=== PATIENT | female | born 1950 | race Caucasian/White ===

== ENCOUNTER → 2018-09-13 | Outpatient (CLI) | payer MEDICARE, OTHER ==
[~2018-09-13] MED LIST: CARV6.252 PO; CEPH-368 PO; EPINEPHRINE 1 MG/ML, 1ML ONE; FAMO-79 PO; FENTANYL PF 250 MCG/5ML ONE; HYDR25TA6 PO; KETOROLAC 60 MG/2 ML ONE; LEVO137T2 PO; LEVO500T47 PO; LIOT5TAB3 PO; LISI1TAB3 PO; MIDAZOLAM 1 MG/ML, 2ML ONE; OXYC-306 PO; POTA10TA6 PO; PRED10TA PO; RANI150T23 PO; ROPIvacaine/PF 0.2%, 20 ML ONE; SODIUM CHLORIDE 0.9% 100 ML ONE; TRANEXAMIC ACID 100 MG/ML, 10ML ONE; VENL150C PO
[2018-09-13 16:07] LABS: BASOPHILS # (AUTO) 0.05 x10^3/uL (0-0.1); BASOPHILS % (AUTO) 1 % (0-1); EOSINOPHILS # (AUTO) 0.42 x10^3/uL (0-0.4); EOSINOPHILS % (AUTO) 5 % (1-7); LYMPHOCYTES # (AUTO) 1.64 x10^3/uL (1-3.4); LYMPHOCYTES % (AUTO) 21 % (22-44); MD NO; MEAN CORPUSCULAR HEMOGLOBIN 31.8 pg (27.0-34.8); MEAN CORPUSCULAR HGB CONC 33.7 g/dL (32.4-35.8); MEAN CORPUSCULAR VOLUME 94.4 fL (80-100); MEAN PLATELET VOLUME 8.2 fL (7.4-10.4); MONOCYTES # (AUTO) 0.62 x10^3/uL (0.2-0.8); MONOCYTES % (AUTO) 8 % (2-9); NEUTROPHILS % (AUTO) 66 % (42-75); PLATELET COUNT 295 x10^3/uL (130-400); RED BLOOD COUNT 4.39 x10^6/uL (3.82-5.3); RED CELL DISTRIBUTION WIDTH 13.2 % (9.6-15.2)
[2018-09-13 16:17] LABS: INTERNATIONAL NORMALIZED RATIO 0.97 (0.93-1.1); PROTHROMBIN TIME 10.3 Seconds (9.6-11.5)
[2018-09-13 16:18] LABS: ALBUMIN 3.7 g/dL (3.4-5.0); ANION GAP 7 mmol/L (5-15); CALCIUM 9.4 mg/dL (8.5-10.1); CHLORIDE 104 mmol/L (98-107)
[2018-09-13 16:21] LABS: ALANINE AMINOTRANSFERASE 30 U/L (12-78); ALKALINE PHOSPHATASE 88 U/L (45-117); BILIRUBIN,TOTAL 0.4 mg/dL (0.2-1.0); CREATININE 0.64 mg/dL (0.55-1.02); TOTAL PROTEIN 7.3 g/dL (6.4-8.2)
== END | disposition home or self-care (01) ==
LOC: STAR 14:55
PROVIDERS: ATTEND Orthopaedic Surgery
DX: Z01.818 Encounter for other preprocedural examination (principal); M17.11 Unilateral primary osteoarthritis, right knee
CPT/HCPCS: 36415; 80053; 83036; 85025; 85610; 85730; 87081; 87147; 87806; 93005; G0475

== ENCOUNTER 2018-09-17 07:28 | Inpatient (IN) | payer MEDICARE, OTHER ==
[~2018-09-17] VITALS: Ht 170.2 cm; Wt 100.8 kg
[~2018-09-17 07:28] MED LIST changes: -EPINEPHRINE 1 MG/ML, 1ML ONE; -FENTANYL PF 250 MCG/5ML ONE; -KETOROLAC 60 MG/2 ML ONE; -MIDAZOLAM 1 MG/ML, 2ML ONE; -ROPIvacaine/PF 0.2%, 20 ML ONE; -SODIUM CHLORIDE 0.9% 100 ML ONE; -TRANEXAMIC ACID 100 MG/ML, 10ML ONE
[2018-09-17] MEDS ORDERED: LACTATED RINGERS 1,000 ML IV SCH (07:55)
[2018-09-17] MEDS ORDERED: ACETAMINOPHEN 500 MG TABLET PO ONE (08:00)
[2018-09-17] MEDS ORDERED: GABAPENTIN 300 MG CAPSULE PO ONE (08:00)
[2018-09-17 08:07] VITALS: BP 138/93
[2018-09-17] MEDS ORDERED: PROPOFOL 10 MG/ML, 20ML ONE (10:22)
[2018-09-17] MEDS ORDERED: SUCCINYLCHOLINE 20 MG/ML, 10ML ONE (10:22)
[2018-09-17] MEDS ORDERED: CEFAZOLIN 1,000 MG ONE (10:22)
[2018-09-17] MEDS ORDERED: GLYCOPYRROLATE 0.2MG/1ML, 5ML ONE (10:22)
[2018-09-17] MEDS ORDERED: ROCURONIUM 10MG/ML,5ML ONE (10:22)
[2018-09-17] MEDS ORDERED: NEOSTIGMINE 1 MG/ML, 10ML ONE (10:22)
[2018-09-17] MEDS ORDERED: PROMETHAZINE 25 MG/ML, 1ML IV PRN (11:00)
[2018-09-17] MEDS ORDERED: MEPERIDINE/PF 25MG/0.5ML IVPush PRN (11:00)
[2018-09-17] MEDS ORDERED: OXYcodone 5 MG/5 ML ORAL.SOL UDC PO PRN (11:00)
[2018-09-17] MEDS ORDERED: ALBUTEROL SULFATE 2.5 MG/3 ML NPPB PRN (11:00)
[2018-09-17] MEDS ORDERED: KETOROLAC 30 MG/1 ML IV PRN (11:00)
[2018-09-17] MEDS ORDERED: ONDANSETRON 2MG/ML, 2ML IVPush PRN (11:00)
[2018-09-17] MEDS ORDERED: hydrALAzine 20 MG/ML, 1ML IV PRN (11:00)
[2018-09-17] MEDS ORDERED: FENTANYL PF 100 MCG/2ML IV PRN (11:00)
[2018-09-17] MEDS ORDERED: HYDROmorphone 1 MG/ML, 1ML IV PRN ×2 (11:00→12:30)
[2018-09-17] MEDS ORDERED: METOCLOPRAMIDE 5 MG/ML, 2ML IV PRN (11:00)
[2018-09-17] MEDS ORDERED: LABETALOL 5MG/ML, 20ML IV PRN (11:00)
[2018-09-17] MEDS ORDERED: DIPHENHYDRAMINE 25 MG CAPSULE PO PRN (12:30)
[2018-09-17] MEDS ORDERED: PROMETHAZINE 25 MG/ML, 1ML IM PRN (12:30)
[2018-09-17] MEDS ORDERED: BISACODYL 10 MG SUPP PR PRN (12:30)
[2018-09-17] MEDS ORDERED: LORazepam 1MG TABLET PO PRN (12:30)
[2018-09-17] MEDS ORDERED: ZOLPIDEM 5MG TABLET PO PRN (12:30)
[2018-09-17] MEDS ORDERED: ALUMINUM/MAG/SIMETHICONE 30 ML UDC PO PRN (12:30)
[2018-09-17] MEDS ORDERED: SENNA/DOCUSATE TABLET PO PRN (12:30)
[2018-09-17] MEDS ORDERED: LORazepam 2 MG/ML, 1ML IVPush PRN (12:30)
[2018-09-17] MEDS ORDERED: MAGNESIUM HYDROXIDE 8%, 30ML UDC PO PRN (12:30)
[2018-09-17] MEDS ORDERED: TRANEXAMIC ACID 1,000 MG in SODIUM CHLORIDE 0.9% 100 ML IVPB ONE (12:30)
[2018-09-17] MEDS ORDERED: PROMETHAZINE 12.5 MG SUPP PR PRN (12:30)
[2018-09-17] MEDS ORDERED: DIAZEPAM 5 MG TABLET PO PRN (12:30)
[2018-09-17] MEDS ORDERED: ONDANSETRON 2MG/ML, 2ML IV PRN (12:30)
[2018-09-17] MEDS ORDERED: ACETAMINOPHEN 650 MG/20.3 ML UDC PO PRN (12:30)
[2018-09-17] MEDS ORDERED: ONDANSETRON 4 MG TABLET PO PRN (12:30)
[2018-09-17] MEDS ORDERED: OXYcodone 5 MG/5 ML ORAL.SOL UDC ONE (12:36)
[2018-09-17] MEDS ORDERED: FENTANYL PF 100 MCG/2ML ONE (12:36)
[2018-09-17 13:25] VITALS: BP 126/81
[2018-09-17] MEDS ORDERED: RANITIDINE MC SCH (13:30)
[2018-09-17] MEDS ORDERED: HYDROmorphone 2 MG/ML, 1ML ONE (13:39)
[2018-09-17 17:25] VITALS: BP 124/78
[2018-09-17] MEDS: CEFAZOLIN PMX 2GM/50ML 50 ML IVPB SCH (17:41)
[2018-09-17] MEDS: D5%-0.45% NACL 1,000 ML IV SCH (19:30)
[2018-09-17 20:20] VITALS: BP 117/73
[2018-09-17] MEDS ORDERED: FAMOTIDINE 20 MG TABLET PO SCH (21:00)
[2018-09-17] MEDS: DOCUSATE 100 MG CAPSULE PO SCH (21:43)
[2018-09-17] MEDS: CARVEDILOL 6.25 MG TABLET PO SCH (21:44)
[2018-09-17 23:59] VITALS: BP 117/76
[2018-09-18] MEDS: CEFAZOLIN PMX 2GM/50ML 50 ML IVPB SCH (01:35)
[2018-09-18 04:17] VITALS: BP 114/64
[2018-09-18] MEDS: HYDROcodone/APAP 5/325 TABLET PO PRN ×2 (05:16→09:31)
[2018-09-18] MEDS: D5%-0.45% NACL 1,000 ML IV SCH (05:30)
[2018-09-18] MEDS ORDERED: DEXAMETHASONE 4 MG/ML, 1ML IVPush SCH (06:00)
[2018-09-18] MEDS ORDERED: LEVOTHYROXINE 137 MCG TABLET PO SCH (06:00)
[2018-09-18] MEDS ORDERED: ASPIRIN 81 MG TABLET EC PO SCH ×2 (06:00→18:00)
[2018-09-18 07:15] VITALS: BP 127/75
[2018-09-18] MEDS: DOCUSATE 100 MG CAPSULE PO SCH (08:57)
[2018-09-18] MEDS: CARVEDILOL 6.25 MG TABLET PO SCH (08:57)
[2018-09-18] MEDS ORDERED: POTASSIUM CHLORIDE 10 MEQ TABLET.ER PO SCH (09:00)
[2018-09-18] MEDS ORDERED: MULTIVITAMINS/MINERALS TABLET PO SCH (09:00)
[2018-09-18] MEDS ORDERED: HYDROCHLOROTHIAZIDE 25 MG TABLET PO SCH (09:00)
[2018-09-18] MEDS ORDERED: VENLAFAXINE 75 MG CAP ER PO SCH (09:00)
[2018-09-18] MEDS ORDERED: LIOTHYRONINE 5 MCG TABLET PO SCH (09:00)
[2018-09-18] MEDS ORDERED: KETOROLAC 30 MG/1 ML IV SCH (12:30)
[2018-09-18 13:12] VITALS: BP 125/68
== END 2018-09-18 13:28 | disposition home or self-care (01) | DRG 470 ==
LOC: OUT 07:28 → ORIP 13:10 → 4NOR 13:16 → UNDODISIN 09-18 13:10 → DCLOUNGE 09-18 13:23
PROVIDERS: ADMIT Orthopaedic Surgery; ATTEND Orthopaedic Surgery
PROC: 3E0T3BZ Introduction of Anesthetic Agent into Peripheral Nerves and Plexi, Percutaneous Approach (ICD-10-PCS; 2018-09-17)
PROC: 5A09357 Assistance with Respiratory Ventilation, Less than 24 Consecutive Hours, Continuous Positive Airway Pressure (ICD-10-PCS; 2018-09-17)
PROC: 0SRC069 Replacement of Right Knee Joint with Oxidized Zirconium on Polyethylene Synthetic Substitute, Cemented, Open Approach (ICD-10-PCS; principal; 2018-09-17 09:45)
PROC: 5A09357 Assistance with Respiratory Ventilation, Less than 24 Consecutive Hours, Continuous Positive Airway Pressure (ICD-10-PCS; 2018-09-18)
DX: M17.11 Unilateral primary osteoarthritis, right knee (principal); M46.1 Sacroiliitis, not elsewhere classified; R11.0 Nausea; I10 Essential (primary) hypertension; M21.00 Valgus deformity, not elsewhere classified, unspecified site
CPT/HCPCS: 36415; 85014; 85018; C1713; G0378; J0171; J0690; J1100; J1170; J1885; J2250; J2405; J2704; J2710; J2795; J3010; J3490; C1776; J0330; J7120

== ENCOUNTER 2018-10-12 19:03 | Day surgery (SDC) | payer MEDICARE, OTHER ==
[~2018-10-12] VITALS: Ht 170.2 cm; Wt 99.6 kg
--- NOTE | 2018-10-12 19:22 | NUR ---
THIS IS A 68 YO FEMALE WHO PRESENTS TO THE ER C/O DEHISCENCE OF RIGHT KNEE SURGICAL SITE. PT HAD SX ON 09/17/18. PT CURRENTLY DENIES PAIN, BUT STATES WITH WEIGHT BEARING PAIN IS A 7/10. PT REFUSES OFFER OF PAIN MEDICATION AT THIS TIME. WET DRESSING PLACED ON SITE. PT REPORTS LAST TIME SHE ATE WAS SOUP FOR LUNCH AROUND 1300. PT AO X 4. SKIN PWD. RESP EVEN ADN EQAUL. AT BEDSIDE. CALL LIGHT WITHIN REACH. WILL COTN TO MONITOR PT.
[2018-10-12 20:45] VITALS: BP 159/73
[2018-10-12] MEDS ORDERED: ASPI-515 PO (20:47)
[2018-10-12] MEDS ORDERED: PROPOFOL 10 MG/ML, 20ML ONE (20:51)
[2018-10-12] MEDS ORDERED: LIDOCAINE 2% 100MG/5ML SYRINGE ONE (20:51)
[2018-10-12] MEDS ORDERED: CEFAZOLIN 1,000 MG ONE (20:51)
[2018-10-12] MEDS ORDERED: MIDAZOLAM 1 MG/ML, 2ML ONE (20:55)
[2018-10-12] MEDS ORDERED: FENTANYL PF 100 MCG/2ML ONE (20:55)
[2018-10-12] MEDS ORDERED: MORPHINE SULFATE 4 MG/ML, 1ML IVPush PRN (21:00)
[2018-10-12] MEDS ORDERED: hydrALAzine 20 MG/ML, 1ML IV PRN ×2 (21:00→22:00)
[2018-10-12] MEDS ORDERED: FENTANYL PF 100 MCG/2ML IV PRN ×2 (21:00→22:00)
[2018-10-12] MEDS ORDERED: METOPROLOL 1 MG/ML, 5ML IV PRN (21:00)
[2018-10-12] MEDS ORDERED: OXYcodone 5 MG/5 ML ORAL.SOL UDC PO PRN ×2 (21:00→22:00)
[2018-10-12] MEDS ORDERED: LABETALOL 5MG/ML, 20ML IV PRN ×2 (21:00→22:00)
[2018-10-12] MEDS ORDERED: SODIUM CHLORIDE FLUSH 10ML SYR IVF PRN (21:00)
[2018-10-12] MEDS ORDERED: METOCLOPRAMIDE 5 MG/ML, 2ML IV PRN (21:00)
[2018-10-12] MEDS ORDERED: LORazepam 2 MG/ML, 1ML IVPush PRN (21:00)
[2018-10-12] MEDS ORDERED: OXYcodone 5 MG/5 ML ORAL.SOL UDC ONE (21:52)
[2018-10-12] MEDS ORDERED: morphine SULFATE 10 MG/ML, 1ML ONE (21:56)
[2018-10-12] MEDS ORDERED: HYDROmorphone 1 MG/ML, 1ML ONE (21:57)
[2018-10-12] MEDS ORDERED: HYDROcodone/APAP 7.5-325MG/15ML UDC ONE ×2 (21:59→22:18)
[2018-10-12] MEDS ORDERED: HYDROmorphone 2 MG/ML, 1ML IVPush PRN (22:00)
[2018-10-12] MEDS ORDERED: ONDANSETRON 2MG/ML, 2ML IV PRN (22:00)
[2018-10-12] MEDS ORDERED: MORPHINE SULFATE 4 MG/ML, 1ML ONE ×2 (22:01→22:18)
[2018-10-12] MEDS: HYDROcodone/APAP 7.5-325MG/15ML UDC PO PRN ×2 (22:02→22:19)
[2018-10-12] MEDS: MORPHINE SULFATE 4 MG/ML, 1ML IVPush PRN ×2 (22:03→22:10)
[2018-10-12] MEDS ORDERED: CEPH-368 PO (22:55)
== END 2018-10-12 22:56 | disposition home or self-care (01) ==
LOC: SDC 19:56 → ED 19:56 → EDIP 20:45 → UNDOADMIN 20:45 → SDC 20:45 → EDIP 22:45 → 4NOR 22:45 → SDC 22:56 → UNDODISIN 23:46
PROVIDERS: ATTEND Orthopaedic Surgery
DX: T81.30XA Disruption of wound, unspecified, initial encounter (principal); Z96.651 Presence of right artificial knee joint; Y83.8 Other surgical procedures as the cause of abnormal reaction of the patient, or of later complication, without mention of misadventure at the time of the procedure; Y92.89 Other specified places as the place of occurrence of the external cause; K21.9 Gastro-esophageal reflux disease without esophagitis; E03.9 Hypothyroidism, unspecified; I10 Essential (primary) hypertension; G47.33 Obstructive sleep apnea (adult) (pediatric); Z88.8 Allergy status to other drugs, medicaments and biological substances
CPT/HCPCS: 12020; 20610; 73564; 96374; 99285; J0690; J2250; J2704; J3010; G0378

== ENCOUNTER → 2020-05-06 | Outpatient (CLI) | payer MEDICARE, OTHER ==
[~2020-05-06] MED LIST changes: +ASPI-515 PO; +LIOT5TAB11 PO; -LIOT5TAB3 PO; +LISI1TAB23 PO; -LISI1TAB3 PO; +RANI-467 PO; -RANI150T23 PO
== END | disposition home or self-care (01) ==
LOC: RAD 09:43
PROVIDERS: ATTEND Nurse Practitioner Family
DX: R68.84 Jaw pain (principal)
CPT/HCPCS: 70100

== ENCOUNTER → 2020-05-06 | Outpatient (CLI) | payer MEDICARE, OTHER | END | disposition home or self-care (01) | LOC: CFH 08:44 | PROVIDERS: ATTEND Nurse Practitioner Family | DX: I63.81 Other cerebral infarction due to occlusion or stenosis of small artery (principal); J34.89 Other specified disorders of nose and nasal sinuses; R42 Dizziness and giddiness; R68.84 Jaw pain; W18.30XA Fall on same level, unspecified, initial encounter; X58.XXXA Exposure to other specified factors, initial encounter; Y92.89 Other specified places as the place of occurrence of the external cause; Y99.8 Other external cause status | CPT/HCPCS: 70450 ==

== ENCOUNTER → 2020-07-15 | Outpatient (CLI) | payer MEDICARE, OTHER | END | disposition home or self-care (01) | LOC: CFH 15:31 | PROVIDERS: ATTEND Otolaryngology | DX: R42 Dizziness and giddiness (principal) | CPT/HCPCS: 76536 ==